=== PATIENT | male | born 1995 | race Caucasian/White ===

== ENCOUNTER 2018-10-15 23:04 | Emergency (ER) | payer OTHER ==
[~2018-10-15] VITALS: Ht 175.3 cm; Wt 81.7 kg
[~2018-10-15 23:04] MED LIST: ACYC800 PO; CALZINTL TOP; DIPH50 PO; Naprosyn500 MG PO; Percocet 5-3251 EACH PO; Prednisone20 MG PO; Veetids 500500 MG PO
== END 2018-10-16 02:45 | disposition left against medical advice (07) ==
LOC: ER 23:04
DX: R10.9 Unspecified abdominal pain (principal); R11.2 Nausea with vomiting, unspecified; F17.200 Nicotine dependence, unspecified, uncomplicated
CPT/HCPCS: 99283